=== PATIENT | male | born 1930 | race Caucasian/White ===

== ENCOUNTER → 2017-08-12 | Outpatient (REF) | payer OTHER ==
[2017-08-12 20:39] LABS: HEMATOCRIT 39.1 % (42.0-52.0); HEMOGLOBIN 12.4 g/dl (14.0-18.0); MEAN CORPUSCULAR HEMOGLOBIN 31.4 pg (27.0-33.0); MEAN CORPUSCULAR HGB CONC 31.7 g/dl (32.0-36.5); PLATELET COUNT, AUTOMATED 115 10^3/uL (150-450); RED BLOOD COUNT 3.95 10^6/uL (4.30-6.10); RED CELL DISTRIBUTION WIDTH 12.9 % (11.5-14.5)
[2017-08-12 21:03] LABS: ALBUMIN 4.4 GM/DL (3.2-5.2); ALBUMIN/GLOBULIN RATIO 1.33 (1.00-1.93); ALKALINE PHOSPHATASE 60 U/L (45-117); ALT/SGPT 16 U/L (12-78); ANION GAP 4 MEQ/L (8-16); AST/SGOT 19 U/L (7-37); BILIRUBIN,TOTAL 0.6 MG/DL (0.2-1.0); BLOOD UREA NITROGEN 23 MG/DL (7-18); CALCIUM LEVEL 8.8 MG/DL (8.8-10.2); CARBON DIOXIDE LEVEL 30 MEQ/L (21-32); CHLORIDE LEVEL 111 MEQ/L (98-107); CREATININE FOR GFR 1.27 MG/DL (0.70-1.30); GLOMERULAR FILTRATION RATE 57.2 (>35); GLUCOSE, FASTING 81 MG/DL (70-100); POTASSIUM SERUM 4.7 MEQ/L (3.5-5.1); SODIUM LEVEL 145 MEQ/L (136-145); TOTAL PROTEIN 7.7 GM/DL (6.4-8.2)
== END ==
LOC: M SFHCADAM 15:21
DX: G30.1 Alzheimer's disease with late onset (principal); E78.4 Other hyperlipidemia
CPT/HCPCS: 80053

== ENCOUNTER 2018-05-07 19:52 | Emergency (ER) | payer OTHER, MEDICARE ==
[2018-05-07 20:40] LABS: KETONE, URINE AUTO RFX NEGATIVE (NEGATIVE); MUCUS, URINE RFX SMALL (NEGATIVE); RBC, URINE AUTO RFX 58 /HPF (0-3); SPECIFIC GRAVITY UR AUTO RFX 1.016 (1.002-1.035); SQUAM EPITHELIAL CELL UR AURFX 0 /HPF (0-6)
[2018-05-07 20:41] LABS: LEUKOCYTE ESTERASE UR AUTO RFX 3+ (NEGATIVE); NITRITE, URINE AUTO RFX POSITIVE (NEGATIVE); WBC, URINE AUTO RFX TNTC /HPF (0-3)
[2018-05-07] MEDS: cloNIDine 0.1 MG TAB PO (21:02)
[2018-05-07] MEDS: CIPROFLOXACIN 500 MG TAB PO (21:02)
== END 2018-05-07 22:55 | disposition home or self-care (01) ==
LOC: M ED 19:52
DX: N39.0 Urinary tract infection, site not specified (principal); I10 Essential (primary) hypertension; F03.90 Unspecified dementia, unspecified severity, without behavioral disturbance, psychotic disturbance, mood disturbance, and anxiety
CPT/HCPCS: 70450

== ENCOUNTER → 2018-10-01 | Outpatient (REF) | payer MEDICARE, OTHER ==
[~2018-10-01] MED LIST: AMLO25TA PO; CIPR-249 PO; CLONI1TA PO; DONE10TA90 PO; MEMA1TAB2 PO
[2018-10-01 19:33] LABS: ALBUMIN 4.2 GM/DL (3.2-5.2); BILIRUBIN,TOTAL 0.6 MG/DL (0.2-1.0); CALCIUM LEVEL 8.9 MG/DL (8.8-10.2); CREATININE FOR GFR 1.39 MG/DL (0.70-1.30); GLOMERULAR FILTRATION RATE 51.5 (>35); POTASSIUM SERUM 4.6 MEQ/L (3.5-5.1); TOTAL PROTEIN 7.6 GM/DL (6.4-8.2)
[2018-10-01 19:42] LABS: HEMATOCRIT 40.9 % (42.0-52.0); MEAN CORPUSCULAR HEMOGLOBIN 31.9 pg (27.0-33.0); MEAN CORPUSCULAR HGB CONC 31.8 g/dl (32.0-36.5); MEAN CORPUSCULAR VOLUME 100.2 fl (80.0-96.0); PLATELET COUNT, AUTOMATED 100 10^3/uL (150-450); RED BLOOD COUNT 4.08 10^6/uL (4.30-6.10); WHITE BLOOD COUNT 5.7 10^3/uL (4.0-10.0)
== END ==
LOC: M SFHCADAM 14:14
PROVIDERS: ATTEND Physician Assistant
DX: I10 Essential (primary) hypertension (principal)
CPT/HCPCS: 80053; 85027; G0463

== ENCOUNTER 2018-10-05 11:46 | Inpatient (IN) | payer MEDICARE, OTHER ==
[~2018-10-05] VITALS: Ht 167.6 cm; Wt 80.9 kg
[~2018-10-05 11:46] MED LIST changes: -AMLO25TA PO; -DONE10TA90 PO; -MEMA1TAB2 PO
[2018-10-05] MEDS ORDERED: ONDANSETRON 4MG/2ML VIAL (J2405) IV ONE (12:30)
[2018-10-05] MEDS ORDERED: NS 1,000 ML IV ONE (12:30)
[2018-10-05 12:51] LABS: BASO % 0.2 % (0.0-1.0); EOS % 0.1 % (0.0-3.0); HEMATOCRIT 41.1 % (42.0-52.0); HEMOGLOBIN 13.4 g/dl (13.5-17.5); LYMPH # 0.8 10^3/uL (1.5-4.5); LYMPH % 4.6 % (24.0-44.0); MEAN CORPUSCULAR HEMOGLOBIN 32.4 pg (27.0-33.0); MEAN CORPUSCULAR HGB CONC 32.6 g/dl (32.0-36.5); MEAN CORPUSCULAR VOLUME 99.3 fl (80.0-96.0); NEUTROPHILS # 12.5 10^3/uL (1.8-7.7); RED BLOOD COUNT 4.14 10^6/uL (4.30-6.10); WHITE BLOOD COUNT 16.7 10^3/uL (4.0-10.0)
--- NOTE | 2018-10-05 12:57 | REP ---
Chest one-view HISTORY: Cough Comparison: 07/01/2016 A parenchymal density is present in the left lower lobe consistent with atelectasis or infiltrate. The right lung is clear. The heart is normal in size. The pulmonary vasculature is normal in appearance. Impression: Left lower lobe atelectasis or infiltrate. Electronically Signed by Bertram Dumont MD 10/05/2018 12:49 P
[2018-10-05 13:17] LABS: INR 1.15; PROTHROMBIN TIME 14.9 SECONDS (12.1-14.4)
[2018-10-05 13:18] LABS: PARTIAL THROMBOPLASTIN TIME 30.7 SECONDS (25.4-37.6)
[2018-10-05 13:41] LABS: PLATELET COUNT, AUTOMATED 57 10^3/uL (150-450)
[2018-10-05 13:42] LABS: MONO # 3.2 10^3/uL (0.0-0.8)
[2018-10-05] MEDS ORDERED: LIDOCAINE 2% 5ML JELLY UROJET TOP ONE (13:45)
[2018-10-05 14:03] LABS: ALBUMIN 3.7 GM/DL (3.2-5.2); BILIRUBIN,DIRECT 0.1 MG/DL (0.0-0.2); BILIRUBIN,TOTAL 0.9 MG/DL (0.2-1.0); CALCIUM LEVEL 8.6 MG/DL (8.8-10.2); CREATININE FOR GFR 2.91 MG/DL (0.70-1.30); GLOMERULAR FILTRATION RATE 21.9 (>35); MB/CK RELATIVE INDEX 0.32 (< OR =4); TOTAL PROTEIN 8.3 GM/DL (6.4-8.2); TROPONIN I 0.09 NG/ML (< 0.10)
[2018-10-05] MEDS ORDERED: DONE10TA90 PO (14:12)
[2018-10-05] MEDS ORDERED: MEMA1TAB2 PO (14:12)
[2018-10-05] MEDS ORDERED: AMLO25TA PO (14:12)
[2018-10-05] MEDS ORDERED: PIPERACILLIN/TAZOBACTAM SOD 3.375 GM in D5W MINI-BAG PLUS 50 ML IV ONE (14:30)
--- NOTE | 2018-10-05 15:46 | ECGEPIP ---
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
--- NOTE | 2018-10-05 16:11 | HPE ---
DATE OF ADMISSION: 10/05/2018 88-year-old male with past medical history of hypertension, moderate Alzheimer, who presents to emergency room due to altered mental status and nausea and vomiting that happened earlier this morning. According to the , the patient was having a hard time dressing himself yesterday, go to the doctor's office, which is unusual for him. Then, later on that evening he started having episodes of nausea and vomiting and became altered, so they came to the emergency room (ER) for evaluation. In the ER, he was found to have a 60,000 white count and left lower lobe infiltrate as well as a urinary tract infection (UTI). He was started on intravenous (IV) Zosyn. Patient is at this time nonverbal. I could not get any history from him, and he will be admitted for further management. Again, past medical history of hypertension and moderate dementia. He has NO KNOWN DRUG ALLERGIES. FAMILY HISTORY: Noncontributory. SOCIAL HISTORY: Cannot be assessed. Patient is demented. Medications he takes at home are as follow: - amlodipine 2.5 mg orally daily - donepezil 10 mg orally at bedtime - memantine 10 mg orally twice daily REVIEW OF SYSTEMS: Cannot be assessed. Patient is demented. VITAL SIGNS: Blood pressure 167/83. Heart rate is 81 and regular. Respiratory rate 18. Temperature 97.8. Oxygen saturation 89% in room air. Head is atraumatic, normocephalic. Dry mucous membranes noted. Neck supple. No jugular venous distension (JVD). Lungs have bibasilar rhonchi. S1, S2 audible. No murmurs appreciated. Abdomen is soft, positive bowel sounds. No pedal edema. Skin intact. Neurological examination: Patient is obtunded. LABS: Sodium 135, potassium 5, chloride 103, CO2 21, BUN is 40, creatinine 2.91, glucose is 137. Lipase is 103. WBC 16.7, hemoglobin 13.4, hematocrit 41.1, platelets are 57,000. IMPRESSION: 1. Aspiration pneumonia. 2. Acute kidney injury (CRISTELA). PLAN: The patient will be admitted to medical-surgical floor. We will start the patient on normal saline at 125 mL/h. CRISTELA is likely prerenal in nature. The patient likely had the UTI first, which caused him to be nauseous and vomit, then subsequently caused aspiration pneumonia. IV Zosyn 2.25 IV every 8 will be given to cover both his pneumonia and his UTI. We will follow cultures. We will continue his preadmission medications and continue his care on the medical-surgical floor.
--- NOTE | 2018-10-05 16:30 | REP ---
CT CHEST WITHOUT IV CONTRAST: CT chest was performed without IV contrast. Sagittal and coronal reconstruction images are performed. Patchy bilateral lower lobe atelectasis/infiltrate is noted, left greater than right. No definite pleural or pericardial effusion is seen. The heart is not enlarged. Enlarged subcarinal lymph node measures 1.7 cm in short axis. Other subcentimeter mediastinal lymph nodes are present. There is no thoracic aorta aneurysm. There are degenerative changes of the spine. IMPRESSION: Bilateral lower lobe atelectasis/infiltrate left greater than right. Mildly enlarged subcarinal lymph node 1.7 cm in short axis dimension. Electronically Signed by Cain Whyte MD 10/07/2018 12:17 P
--- NOTE | 2018-10-05 17:11 | REP ---
CT ABDOMEN AND PELVIS WITHOUT ORAL OR IV CONTRAST: CT abdomen and pelvis was performed without oral or IV contrast. Sagittal and coronal reconstruction images are performed. The liver, gallbladder, spleen, adrenals, and pancreas are grossly unremarkable. 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 There is atherosclerotic calcification of the abdominal aorta without aneurysm. There is no adenopathy. There is no free air or free fluid. There is diverticulosis of the inferior left coon and sigmoid colon. There is a long segment of thickening of the sigmoid colon with mild adjacent streaky density in the surrounding fat suggesting diverticulitis. In addition there appears to be a tract from the sigmoid colon to the bladder, with some air noted in the bladder lumen. 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 Prostate is somewhat enlarged. There are degenerative changes of the spine. 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 Fistulous tract is noted from the sigmoid colon to the bladder, with air and fluid within the bladder. Note is made of a horseshoe kidney. No other acute abnormalities. Electronically Signed by Cain Whyte MD 10/07/2018 12:22 P
[2018-10-05 17:36] VITALS: BP 177/87
[2018-10-05] MEDS: NS 1,000 ML IV SCH ×2 (18:14→23:03)
[2018-10-05] MEDS ORDERED: DONEPEZIL 5 MG TAB PO SCH (21:00)
[2018-10-05] MEDS: MEMANTINE 5MG TABLET (NAMENDA) PO SCH (21:09)
[2018-10-06 00:10] VITALS: BP 148/88
[2018-10-06] MEDS ORDERED: ACETAMINOPHEN TAB 650MG DOSE (2X325MG) PO PRN (00:15)
[2018-10-06] MEDS: PIPERACILLIN/TAZOBACTAM SOD 2.25 GM in D5W MINI-BAG PLUS 50 ML IV SCH ×2 (00:23→08:46)
[2018-10-06 06:00] VITALS: BP 168/74
[2018-10-06] MEDS: NS 1,000 ML IV SCH (06:00)
[2018-10-06 06:28] LABS: HEMATOCRIT 39.4 % (42.0-52.0); HEMOGLOBIN 12.9 g/dl (13.5-17.5); MEAN CORPUSCULAR HEMOGLOBIN 31.4 pg (27.0-33.0); MEAN CORPUSCULAR HGB CONC 32.7 g/dl (32.0-36.5); MEAN CORPUSCULAR VOLUME 95.9 fl (80.0-96.0); RED BLOOD COUNT 4.11 10^6/uL (4.30-6.10); WHITE BLOOD COUNT 18.6 10^3/uL (4.0-10.0)
[2018-10-06 06:50] LABS: CALCIUM LEVEL 8.2 MG/DL (8.8-10.2); CREATININE FOR GFR 3.39 MG/DL (0.70-1.30); GLOMERULAR FILTRATION RATE 18.4 (>35); POTASSIUM SERUM 3.5 MEQ/L (3.5-5.1)
[2018-10-06 06:51] LABS: PLATELET COUNT, AUTOMATED 41 10^3/uL (150-450)
[2018-10-06 06:55] LABS: LYMPHOCYTES 1 % (16-52); METAMYELOCYTES 11 % (0-0); MONOCYTES 1 % (0-8); MYELOCYTES 1 % (0-0); NEUTROPHILS 75 % (35-75); PLATELET ESTIMATE MARKED DECREASE (NORMAL)
[2018-10-06 06:57] LABS: TOXIC VACUOLATION 1+
[2018-10-06 06:58] LABS: GIANT PLATELETS 1+
[2018-10-06] MEDS: MEMANTINE 5MG TABLET (NAMENDA) PO SCH (08:47)
[2018-10-06 10:55] VITALS: BP 148/97
[2018-10-06] MEDS ORDERED: METOPROLOL 5 MG/5 ML VIAL IV PRN (11:15)
[2018-10-06] MEDS ORDERED: METOPROLOL 5 MG/5 ML VIAL As Ordered ONE (11:16)
[2018-10-06 11:22] LABS: ABG BASE EXCESS -10.6 (-2.0-2.0); ABG O2 SATURATION 96.4 % (95.0-99.0); ABG PARTIAL PRESSURE CO2 23.8 mmHg (35.0-45.0); ABG PARTIAL PRESSURE O2 88.2 mmHg (75.0-100.0); ABG STANDARD HCO3 16.1 MEQ/L (22.0-26.0); ABG TOTAL CO2 13.7 MEQ/L (23.0-31.0); ABG pH (ARTERIAL) 7.354 UNITS (7.350-7.450)
[2018-10-06 11:26] VITALS: BP 118/59
[2018-10-06 11:30] LABS: HEMATOCRIT 39.2 % (42.0-52.0); HEMOGLOBIN 12.8 g/dl (13.5-17.5); MEAN CORPUSCULAR HEMOGLOBIN 31.9 pg (27.0-33.0); MEAN CORPUSCULAR HGB CONC 32.7 g/dl (32.0-36.5); MEAN CORPUSCULAR VOLUME 97.8 fl (80.0-96.0); RED BLOOD COUNT 4.01 10^6/uL (4.30-6.10); WHITE BLOOD COUNT 26.2 10^3/uL (4.0-10.0)
[2018-10-06] MEDS ORDERED: LR 1,000 ML IV SCH (11:30)
[2018-10-06 11:32] LABS: PLATELET COUNT, AUTOMATED 33 10^3/uL (150-450)
[2018-10-06 11:36] VITALS: BP 124/80
[2018-10-06 12:17] LABS: ALBUMIN 2.9 GM/DL (3.2-5.2); BILIRUBIN,TOTAL 0.8 MG/DL (0.2-1.0); CALCIUM LEVEL 7.3 MG/DL (8.8-10.2); CREATININE FOR GFR 3.7 MG/DL (0.70-1.30); GLOMERULAR FILTRATION RATE 16.6 (>35); MB/CK RELATIVE INDEX 0.16 (< OR =4); POTASSIUM SERUM 3.6 MEQ/L (3.5-5.1); TOTAL PROTEIN 6.4 GM/DL (6.4-8.2); TROPONIN I 5.06 NG/ML (< 0.10)
[2018-10-06] MEDS ORDERED: LevoFLOXacin IV 750 MG in APPROPRIATE DILUENT 1 EA IV ONE (13:00)
--- NOTE | 2018-10-06 13:03 | IPNPDOC ---
Subjective Date Seen The patient was seen on 10/06/18. Subjective Chief Complaint/HPI Rapid assessment team called to floor, patient non-responsive General: Reports: ROS Unobtainable Objective Physical Examination General Exam: Positive: Moderate Distress; Negative: Alert Assessment /Plan Problems (1) Sepsis Status: Acute Problem Text: 10/06/18: Rapid assessment team called to floor. Patient became unresponsive. His pressure was holding around 120/80, O2 saturations 95% on 2L. STAT EKG ordered, STAT labs ordered. Day #1 of Zoysn. NS stopped. Lactated Ringers started rate 150/hr. Levaquin 750mg IV started, pharmacy to renal dose medication. PO meds on hold. Patient was transfered to PCU. Patient is a DNR and DNI. This was discussed over the phone with MD on rapid assessment team. Josie Bynum, patient's daughter is a health care proxy. Detailed discussed with daughter regarding DNR/DNI. Josie Bynum, and other family members would like comfort measures only. All questions were answered. MOLST formed started. Dr. Ibarra is aware and will complete MOLST form with daughter (2) Aspiration pneumonia Status: Acute Problem Text: 10/06/18: Day #1 of Zoysn (3) CRISTELA (acute kidney injury) Status: Acute Problem Text: 10/06/18: BUIN/Cre 58/3.39, GFR 18.4. IVF fluids as above. Treatment of Sepsis as above (4) UTI (urinary tract infection) Status: Acute (5) [place]-vesical fistula Status: Acute Problem Text: 10/06/18: This is a finding on CT scan. This will need to be addressed once patient is stable Plan/VTE VTE Prophylaxis Ordered?: No VS, I&O, 24H, [place] Vital Signs/I&O Vital Signs Date Time Temp Pulse Resp B/P (MAP) Pulse Ox O2 Delivery O2 Flow Rate FiO2 10/06/18 11:26 110 118/59 10/06/18 10:55 98.2 21 93 1.0 10/05/18 12:04 Room Air I&O- Last 24 Hours up to 6 AM 10/06/18 06:00 Intake Total 180 ml Output Total 200 ml Balance -20 ml Laboratory Data 24H LABS Laboratory Tests 2 10/05/18 12:24: Immature Granulocyte % (Auto) 1.1, White Blood Count 16.7H, Red Blood Count 4.14L, Hemoglobin 13.4L, Hematocrit 41.1L, Mean Corpuscular Volume 99.3H, Mean Corpuscular Hemoglobin 32.4, Mean Corpuscular Hemoglobin Concent 32.6, Red Cell Distribution Width 14.1, Platelet Count 57L, Neutrophils (%) (Auto) 75.0H, Lymphocytes (%) (Auto) 4.6L, Monocytes (%) (Auto) 19.0H, Eosinophils (%) (Auto) 0.1, Basophils (%) (Auto) 0.2, Neutrophils # (Auto) 12.5H, Lymphocytes # (Auto) 0.8L, Monocytes # (Auto) 3.2H, Eosinophils # (Auto) 0.0, Basophils # (Auto) 0.0, Nucleated Red Blood Cells % (auto) 0.0, Immature Platelet Fraction 7.8, Prothrombin Time 14.9H, Prothromb Time International Ratio 1.15, Activated P artial Thromboplast Time 30.7, Anion Gap 11, Glomerular Filtration Rate 21.9L, Calcium Level 8.6L, Aspartate Amino Transf (AST/SGOT) 67H, Alanine Aminotransferase (ALT/SGPT) 19, Alkaline Phosphatase 45, Total Bilirubin 0.9, Direct Bilirubin 0.1, Total Creatine Kinase 2094H, Creatine Kinase MB 7.0H, Creatine Kinase MB Relative Index 0.32, Troponin I 0.09, Total Protein 8.3H, Albumin 3.7, Albumin/Globulin Ratio 0.80L, Amylase Level 99, Lipase 103 10/05/18 13:57: Urine Color JOELLEN, Urine Appearance TURBIDH, Urine pH 6.0, Urine Specific [place] 1.017, Urine Protein 2+H, Urine Glucose (UA) NEGATIVE, Urine Ketones TRACEH, Urine Blood 3+H, Urine Nitrite NEGATIVE, Urine Bilirubin NEGATIVE, Urine Urobilinogen 2.0H, Urine Leukocyte Esterase 2+H, Urine WBC (Auto) TNTCH, Urine RBC (Auto) 54H, Urine Hyaline Casts (Auto) 0, Urine Bacteria (Auto) 3+H, Urine Squamous Epithelial Cells 2, Urine Amorphous Sediment MODERATEH, Urine Mucus (Auto) MODERATE, Urine Sperm (Auto) 10/06/18 06:01: Immature Granulocyte % (Auto) , White Blood Count 18.6H, Red Blood Count 4.11L, Hemoglobin 12.9L, Hematocrit 39.4L, Mean Corpuscular Volume 95.9, Mean Corpuscular Hemoglobin 31.4, Mean Corpuscular Hemoglobin Concent 32.7, Red Cell Distribution Width 14.4, Platelet Count 41#L, Lymphocytes # (Auto) , Nucleated Red Blood Cells % (auto) 0.0, Anion Gap 15, Glomerular Filtration Rate 18.4L, Calcium Level 8.2L, Neutrophils 75, Band Neutrophils 11, Lymphocytes (Manual) 1L, Monocytes (Manual) 1, Metamyelocytes 11H, Myelocytes 1H, Toxic Vacuolation 1+, Platelet Estimate MARKED DECREASE, Giant Platelets 1+, Blood Urea Nitrogen 58H, Creatinine 3.39H, Sodium Level 142#, Potassium Level 3.5#, Chloride Level 111H, Carbon Dioxide Level 16L 10/06/18 11:07: Blood Gas Bicarbonate Standard 16.1L, Arterial Blood pH 7.354, Arterial Blood Partial Pressure CO2 23.8L, Arterial Blood Partial Pressure O2 88.2, Arterial Blood Total CO2 13.7L, Arterial Blood HCO3 13.0L, Arterial Blood Base Excess - 10.6L, Arterial Blood Oxygen Saturation 96.4 10/06/18 11:12: 10/06/18 11:15: Nucleated Red Blood Cells % (auto) 0.0 CBC/BMP Laboratory Tests 10/05/18 12:24 Red Blood Count 4.14 L, Mean Corpuscular Volume 99.3 H, Mean Corpuscular Hemoglobin 32.4, Mean Corpuscular Hemoglobin Concent 32.6, Red Cell Distribution Width 14.1, Neutrophils (%) (Auto) 75.0 H, Lymphocytes (%) (Auto) 4.6 L, Monocytes (%) (Auto) 19.0 H, Eosinophils (%) (Auto) 0.1, Basophils (%) (Auto) 0.2, Neutrophils # (Auto) 12.5 H, Lymphocytes # (Auto) 0.8 L, Monocytes # (Auto) 3.2 H, Eosinophils # (Auto) 0.0, Basophils # (Auto) 0.0 10/06/18 06:01 Red Blood Count 4.11 L, Mean Corpuscular Volume 95.9, Mean Corpuscular Hemoglobin 31.4, Mean Corpuscular Hemoglobin Concent 32.7, Red Cell Distribution Width 14.4, Lymphocytes # (Auto) , Calcium Level 8.2 L 10/06/18 11:15 Red Blood Count 4.01 L, Mean Corpuscular Volume 97.8 H, Mean Corpuscular Hemoglobin 31.9, Mean Corpuscular Hemoglobin Concent 32.7, Red Cell Distribution Width 14.6 H Microbiology Microbiology 10/05/18 Blood Culture, Received Pending 10/05/18 Blood Culture, Received Pending 10/06/18 Gastrointestinal Tract Panel (PCR) - Final, Complete 10/05/18 Urine Culture, Received Pending SUYAPA REESP Oct 06, 2018 11:49
[2018-10-06] MEDS ORDERED: FUROSEMIDE 40 MG/4 ML VIAL (J1940) IV ONE (15:15)
[2018-10-06] MEDS ORDERED: ONDANSETRON 4MG/2ML VIAL (J2405) IV PRN (15:15)
[2018-10-06] MEDS ORDERED: ACETAMINOPHEN 650 MG SUPP PR PRN (15:15)
[2018-10-06] MEDS ORDERED: HYOSCYAMINE SULFATE 0.125 MG SUBL TABLET PO PRN (15:15)
[2018-10-06] MEDS ORDERED: SLF 3 ML SYR IV PRN (16:45)
[2018-10-06] MEDS: SCOPOLAMINE 1MG TRANSDERMAL PATCH TOP SCH (17:07)
[2018-10-06] MEDS: SLF 3 ML SYR IV SCH (22:00)
--- NOTE | 2018-10-07 00:59 | ECGEPIP ---
Stationary ECG Study [facility] Test Date: 2018-10-06 Pat Name: JON RUFF Department: Room: [place] [address] Gender: M Clinical Implementation Specialist: KULWANT : 1930 Requested By: TIFFANIE Beltran Order Number: [id number] Reading MD: Yuan Collins Measurements Intervals [place] Rate: 87 P: MS: 0 QRS: 36 QRSD: 93 T: 67 QT: 352 QTc: 426 Interpretive Statements ATRIAL FIBRILLATION WITH ABERRANT CONDUCTION OR VENTRICULAR PREMATURE COMPLEXES ABNORMAL RHYTHM ECG PRIOR TRACING ON 10/05/2018 AT 12:30:34, ATRIAL FIBRILLATION IS NEW Electronically Signed On 10-07-2018 0:58:49 EDT by Yuan Collins
[2018-10-07] MEDS: SLF 3 ML SYR IV SCH ×3 (05:40→21:13)
--- NOTE | 2018-10-07 07:56 | IPNPDOC ---
Subjective Date Seen The patient was seen on 10/07/18. Subjective Chief Complaint/HPI Patient appears comfortable General: Reports: ROS Unobtainable Objective Physical Examination General Exam: Positive: Moderate Distress; Negative: Alert Assessment /Plan Problems (1) Sepsis Status: Acute Problem Text: 10/07/18: Patient on comfort measures. He appears comfortable 10/06/18: Rapid assessment team called to floor. Patient became unresponsive. His pressure was holding around 120/80, O2 saturations 95% on 2L. STAT EKG ordered, STAT labs ordered. Day #1 of Zoysn. NS stopped. Lactated Ringers started rate 150/hr. Levaquin 750mg IV started, pharmacy to renal dose medication. PO meds on hold. Patient was transfered to PCU. Patient is a DNR and DNI. This was discussed over the phone with MD on rapid assessment team. Josie Bynum, patient's daughter is a health care proxy. Detailed discussed with daughter regarding DNR/DNI. Josie Bynum, and other family members would like comfort measures only. All questions were answered. MOLST formed started. Dr. Ibarra is aware and will complete MOLST form with daughter (2) Aspiration pneumonia Status: Acute Problem Text: 10/06/18: Day #1 of Zoysn (3) CRISTELA (acute kidney injury) Status: Acute Problem Text: 10/06/18: BUIN/Cre 58/3.39, GFR 18.4. IVF fluids as above. Treatment of Sepsis as above (4) UTI (urinary tract infection) Status: Acute (5) [place]-vesical fistula Status: Acute Problem Text: 10/06/18: This is a finding on CT scan. This will need to be addressed once patient is stable Plan/VTE VTE Prophylaxis Ordered?: No VS, I&O, 24H, Fishbone Vital Signs/I&O Vital Signs Date Time Temp Pulse Resp B/P (MAP) Pulse Ox O2 Delivery O2 Flow Rate FiO2 10/07/18 04:00 2.0 10/06/18 16:26 98.7 127 18 94 10/06/18 11:36 124/80 (95) 10/05/18 12:04 Room Air I&O- Last 24 Hours up to 6 AM 10/07/18 06:00 Intake Total 400 ml Output Total 0 ml Balance 400 ml Laboratory Data 24H LABS Laboratory Tests 2 10/06/18 11:06: Bedside Glucose (Misc Panel) 97 10/06/18 11:07: Blood Gas Bicarbonate Standard 16.1L, Arterial Blood pH 7.354, Arterial Blood Partial Pressure CO2 23.8L, Arterial Blood Partial Pressure O2 88.2, Arterial Blood Total CO2 13.7L, Arterial Blood HCO3 13.0L, Arterial Blood Base Excess - 10.6L, Arterial Blood Oxygen Saturation 96.4 10/06/18 11:12: Lactic Acid Level 5.0*H 10/06/18 11:15: Nucleated Red Blood Cells % (auto) 0.0, Anion Gap 16, Glomerular Filtration Rate 16.6L, Blood Urea Nitrogen 61H, Creatinine 3.70H, Sodium Level 144, Potassium Level 3.6, Chloride Level 113H, Carbon Dioxide Level 15L, Calcium Level 7.3L, Aspartate Amino Transf (AST/SGOT) 128H, Alanine Aminotransferase (ALT/SGPT) 31, Total Creatine Kinase 3094H, Alkaline Phosphatase 48, Total Bilirubin 0.8, Total Protein 6.4#, Albumin 2.9#L, Creatine Kinase MB 5.0H, Creatine Kinase MB Relative Index 0.16, Troponin I 5.06#*H, Albumin/Globulin Ratio 0.83L CBC/BMP Laboratory Tests 10/06/18 11:15 Red Blood Count 4.01 L, Mean Corpuscular Volume 97.8 H, Mean Corpuscular Hemoglobin 31.9, Mean Corpuscular Hemoglobin Concent 32.7, Red Cell Distribution Width 14.6 H, Calcium Level 7.3 L, Aspartate Amino Transf (AST/SGOT) 128 H, Alanine Aminotransferase (ALT/SGPT) 31, Total Creatine Kinase 3094 H, Alkaline Phosphatase 48, Total Bilirubin 0.8, Total Protein 6.4 #, Albumin 2.9 #L Microbiology Microbiology 10/05/18 Blood Culture - Preliminary, Resulted No growth after 24 hours . All specim... 10/05/18 Blood Culture - Preliminary, Resulted No growth after 24 hours . All specim... 10/06/18 Gastrointestinal Tract Panel (PCR) - Final, Complete 10/05/18 Urine Culture - Preliminary, Resulted Escherichia Coli SUYAPA REES Oct 07, 2018 07:56
[2018-10-07] MEDS: MORPHINE 4 MG/ML 1ML VIAL/SYRINGE (J2270) IV PRN (08:19)
[2018-10-08] MEDS: SLF 3 ML SYR IV SCH ×3 (06:00→22:00)
--- NOTE | 2018-10-08 07:48 | IPNPDOC ---
Subjective Date Seen The patient was seen on 10/08/18. 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 Appears comfortable, in no distress Objective Physical Examination General Exam: Positive: Moderate Distress; Negative: Alert Assessment /Plan Problems (1) Sepsis Status: Acute Problem Text: 10/08/18: Remains on comfort measures. He appears comfortable. Breathing more shallow 10/07/18: Patient on comfort measures. He appears comfortable 10/06/18: Rapid assessment team called to floor. Patient became unresponsive. His pressure was holding around 120/80, O2 saturations 95% on 2L. STAT EKG ordered, STAT labs ordered. Day #1 of Zoysn. NS stopped. Lactated Ringers started rate 150/hr. Levaquin 750mg IV started, pharmacy to renal dose medication. PO meds on hold. Patient was transfered to PCU. Patient is a DNR and DNI. This was discussed over the phone with MD on rapid assessment team. Josie Bynum, patient's daughter is a health care proxy. Detailed discussed with daughter regarding DNR/DNI. Josie Bynum, and other family members would like comfort measures only. All questions were answered. MOLST formed started. Dr. Ibarra is aware and will complete MOLST form with daughter (2) Aspiration pneumonia Status: Acute Problem Text: 10/06/18: Day #1 of Zoysn (3) CRITSELA (acute kidney injury) Status: Acute Problem Text: 10/06/18: BUIN/Cre 58/3.39, GFR 18.4. IVF fluids as above. Treatment of Sepsis as above (4) UTI (urinary tract infection) Status: Acute (5) [place]-vesical fistula Status: Acute Problem Text: 10/06/18: This is a finding on CT scan. This will need to be addressed once patient is stable Plan/VTE VTE Prophylaxis Ordered?: No VS, I&O, 24H, Fishbone Vital Signs/I&O Vital Signs Date Time Temp Pulse Resp B/P (MAP) Pulse Ox O2 Delivery O2 Flow Rate FiO2 10/08/18 04:00 2.0 10/07/18 08:19 22 10/06/18 16:26 98.7 127 94 10/06/18 11:36 124/80 (95) 10/05/18 12:04 Room Air I&O- Last 24 Hours up to 6 AM 3/21/19 06:00 Intake Total 0 ml Output Total 0 ml Balance 0 ml Laboratory Data Microbiology Microbiology 10/05/18 Blood Culture - Preliminary, Resulted No Growth after 48 hours. All Specime... 10/05/18 Blood Culture - Preliminary, Resulted No Growth after 48 hours. All Specime... 10/06/18 Gastrointestinal Tract Panel (PCR) - Final, Complete 10/05/18 Urine Culture - Preliminary, Resulted Escherichia Coli Enterococcus José Luisum SUYAPA REES. [facility] Oct 08, 2018 07:48
[2018-10-08] MEDS ORDERED: LevoFLOXacin IV 500 MG in APPROPRIATE DILUENT 1 EA IV SCH (13:00)
[2018-10-08] MEDS: MORPHINE 4 MG/ML 1ML VIAL/SYRINGE (J2270) IV PRN (16:21)
[2018-10-09] MEDS: SLF 3 ML SYR IV SCH ×3 (06:00→20:32)
--- NOTE | 2018-10-09 08:11 | IPNPDOC ---
Subjective Date Seen The patient was seen on 10/09/18. 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 Daughter at bedside (2) Sepsis Status: Acute Problem Text: 10/08/18: Remains on comfort measures. He appears comfortable. Breathing more shallow 10/07/18: Patient on comfort measures. He appears comfortable 10/06/18: Rapid assessment team called to floor. Patient became unresponsive. His pressure was holding around 120/80, O2 saturations 95% on 2L. STAT EKG ordered, STAT labs ordered. Day #1 of Zoysn. NS stopped. Lactated Ringers started rate 150/hr. Levaquin 750mg IV started, pharmacy to renal dose medication. PO meds on hold. Patient was transfered to PCU. Patient is a DNR and DNI. This was discussed over the phone with MD on rapid assessment team. gely Martins's daughter is a health care proxy. Detailed discussed with daughter regarding DNR/DNI. Josie Bynum, and other family members would like comfort measures only. All questions were answered. MOLST formed started. Dr. Ibarra is aware and will complete MOLST form with daughter (3) Toxic metabolic encephalopathy Status: Acute Response to Treatment: Progressing Problem Specific Plan: Monitor Clinically Problem Text: He is unresponsive at this point in time. This is likely from a combination of infection and renal failure allowing metabolic byproducts and toxins to build up in his system. I anticipate this will continue until he dies. (4) Aspiration pneumonia Status: Acute Problem Text: 10/06/18: Day #1 of Zoysn (5) CRISTELA (acute kidney injury) Status: Acute Problem Text: 10/06/18: BUIN/Cre 58/3.39, GFR 18.4. IVF fluids as above. 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 (7) [place]-vesical fistula Status: Acute Problem Text: 10/06/18: This is a finding on CT scan. This will need to be addressed once patient is stable Plan/VTE VTE Prophylaxis Ordered?: No (CAMPUS SAFETY OFFICER status) Plan Advance Directives: Comfort care Family Medicine Attending Note: I saw and examined Mr. Soto, discussed with Suyapa Tate DNP. Agree with her note as documented. The patient appears comfortable. 3 family members were at bedside including his . He had Kussmaul respirations and I saw him indicating a likely lactic acidosis probably from a combination of infection and volume contraction as he has not taking any fluids at about 3 days. 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 All specime... 10/05/18 Blood Culture - Preliminary, Resulted No Growth after 72 hours. All specime... 10/06/18 Gastrointestinal Tract Panel (PCR) - Final, Complete 10/05/18 Urine Culture - Final, Complete Escherichia Coli Enterococcus Avium Streptococcus Anginosus SUYAPA [place]viedo Oct 09, 2018 8:11 am Constantine Bae MD Oct 09, 2018 8:59 pm
[2018-10-09] MEDS: MORPHINE 4 MG/ML 1ML VIAL/SYRINGE (J2270) IV PRN ×2 (14:53→20:28)
[2018-10-09] MEDS: SCOPOLAMINE 1MG TRANSDERMAL PATCH TOP SCH (16:37)
[2018-10-10] MEDS: MORPHINE 4 MG/ML 1ML VIAL/SYRINGE (J2270) IV PRN ×4 (04:05→17:26)
[2018-10-10] MEDS: SLF 3 ML SYR IV SCH ×3 (04:10→21:01)
--- NOTE | 2018-10-10 15:46 | IPNPDOC ---
Subjective Date Seen The patient was seen on 10/10/18. Subjective Chief Complaint/HPI Daughter in room this morning reports no complaints. States that he has looked comfortable throughout most of his visit. She states she does not need anything at this time and feels her father is comfortable. Objective Physical Examination General Exam: Positive: Moderate Distress; Negative: Alert Assessment /Plan Problems (1) Comfort measures only status Status: Chronic Problem Text: 10/10- Patient appears comfortable at this time. 10/09/18: Patient appears comfortable. Daughter at bedside (2) Sepsis Status: Acute Problem Text: 10/08/18: Remains on comfort measures. He appears comfortable. Breathing more shallow 10/07/18: Patient on comfort measures. He appears comfortable 10/06/18: Rapid assessment team called to floor. Patient became unresponsive. His pressure was holding around 120/80, O2 saturations 95% on 2L. STAT EKG ordered, STAT labs ordered. Day #1 of Zoysn. NS stopped. Lactated Ringers started rate 150/hr. Levaquin 750mg IV started, pharmacy to renal dose medication. PO meds on hold. Patient was transfered to PCU. Patient is a DNR and DNI. This was discussed over the phone with MD on rapid assessment team. Josie Bynum, patient's daughter is a health care proxy. Detailed discussed with daughter regarding DNR/DNI. Josie Bynum, and other family members would like c omfort measures only. All questions were answered. MOLST formed started. Dr. Ibarra is aware and will complete MOLST form with daughter (3) Toxic metabolic encephalopathy Status: Acute Response to Treatment: Progressing Problem Specific Plan: Monitor Clinically Problem Text: He is unresponsive at this point in time. This is likely from a combination of infection and renal failure allowing metabolic byproducts and toxins to build up in his system. I anticipate this will continue until he dies. (4) Aspiration pneumonia Status: Acute Problem Text: 10/06/18: Day #1 of Zoysn (5) CRISTELA (acute kidney injury) Status: Acute Problem Text: 10/06/18: BUIN/Cre 58/3.39, GFR 18.4. IVF fluids as above. 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 This will need to be addressed once patient is stable Plan/VTE VTE Prophylaxis Ordered?: No (PSYCHOMETRIST status) Plan Advance Directives: Comfort care VS, I&O, 24H, Fishbone Vital Signs/I&O Vital Signs Date Time Temp Pulse Resp B/P (MAP) Pulse Ox O2 Delivery O2 Flow Rate FiO2 10/10/18 12:00 2.0 10/10/18 09:55 28 10/06/18 16:26 98.7 127 94 10/06/18 11:36 124/80 (95) 10/05/18 12:04 Room Air I&O- Last 24 Hours up to 6 AM 10/10/18 06:00 Intake Total 0 ml Output Total 0 ml Balance 0 ml Laboratory Data Microbiology Microbiology 10/05/18 Blood Culture - Final, Complete NO GROWTH AFTER 5 DAYS 10/05/18 Blood Culture - Final, Complete NO GROWTH AFTER 5 DAYS 10/06/18 Gastrointestinal Tract Panel (PCR) - Final, Complete 10/05/18 Urine Culture - Final, Complete Escherichia Coli Enterococcus Avium Streptococcus Anginosus Grp GME ATTESTATION GME ATTESTATION My faculty preceptor for this patient encounter was physically present during the encounter and was fully available. All aspects of the patient interview, examination, medical decision making process, and medical care plan development were reviewed and approved by the faculty preceptor. The faculty preceptor is aware and concurs with the plan as stated in the body of this note and will attest to such by his/her cosignature. SABRA HUNT DO Oct 10, 2018 15:46
[2018-10-10] MEDS: LORazepam 2 MG/ML VIAL (J2060) IV PRN ×2 (16:42→23:59)
[2018-10-11] MEDS: MORPHINE 4 MG/ML 1ML VIAL/SYRINGE (J2270) IV PRN (01:50)
[2018-10-11] MEDS: SLF 3 ML SYR IV SCH (05:24)
--- NOTE | 2018-10-12 09:56 | DSES ---
DATE OF ADMISSION: 10/05/2018 DATE OF DISCHARGE: 10/11/2018 REASON FOR ADMISSION: Mr. Soto is an 88 year old who suffers from dementia, who had episodes of vomiting and seems to have an illness with aspiration event occurring thought to be triggered by urinary tract infection initially. He did have confirmation of Escherichia (E) coli, Enterococcus avium and streptococcus anginosum in his urine. All three organisms were present, the quantities greater than 100,000. He had what was seemed to be an aspiration event. Chest x-ray showed a left lower lobe atelectasis or infiltrate. He was initially treated with appropriate antibiotics after being admitted on 10/05/2018. Then, on 10/06/2018, he had an episode of unresponsiveness. He did have a DO NOT RESUSCITATE/DO NOT INTUBATE order. Family members were contacted and reviewed current status, and family members serving as proxy identified that they would like patient's status changed to comfort measures at that point. The combination of his multisystem injury, he had acute kidney injury in addition to the aspiration pneumonia, urinary tract infection, and a new finding of a colovesical fistula which was likely creating the urinary tract infection. These, superimposed on his chronic dementia, were enough, considering the severity of his illness, for family request a change of status to comfort measures, and these measures were put in place on 10/06/2018. Active treatment measures were accordingly withdrawn, and on morning of 10/11/2018, patient of his disease. 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 No autopsy was requested.
== END 2018-10-11 06:52 | disposition expired | DRG 871 ==
LOC: EDBD 11:46 → M ED 11:46 → M ED INP 14:17 → M MSPAV 17:36 → M PCU 10-06 11:36
PROVIDERS: ADMIT Internal Medicine; ATTEND Family Medicine
DX: A41.9 Sepsis, unspecified organism (principal); J69.0 Pneumonitis due to inhalation of food and vomit; G92 Toxic encephalopathy; N17.9 Acute kidney failure, unspecified; N39.0 Urinary tract infection, site not specified; N32.1 Vesicointestinal fistula; K63.2 Fistula of intestine; B96.20 Unspecified Escherichia coli [E. coli] as the cause of diseases classified elsewhere; G30.9 Alzheimer's disease, unspecified; F02.80 Dementia in other diseases classified elsewhere, unspecified severity, without behavioral disturbance, psychotic disturbance, mood disturbance, and anxiety; Z51.5 Encounter for palliative care; Z66 Do not resuscitate; B95.2 Enterococcus as the cause of diseases classified elsewhere; B95.5 Unspecified streptococcus as the cause of diseases classified elsewhere; I10 Essential (primary) hypertension; Z79.899 Other long term (current) drug therapy